=== PATIENT | female | born 1955 | race Caucasian/White ===

== ENCOUNTER → 2016-11-28 | Outpatient (CLI) | payer MEDICAID ==
[~2016-11-28] MED LIST: GADOBUTROL 7.5 MMOL/7.5 ML PFS ONE; HYDR-3240 PO
== END | disposition home or self-care (01) ==
LOC: CFH 10:08
PROVIDERS: ATTEND Nurse Practitioner Family
DX: Z12.31 Encounter for screening mammogram for malignant neoplasm of breast (principal); M51.36 Other intervertebral disc degeneration, lumbar region; D18.09 Hemangioma of other sites; M48.06 Spinal stenosis, lumbar region; M47.896 Other spondylosis, lumbar region
CPT/HCPCS: 72148; A9585; G0202